=== PATIENT | female | born 2000 | race Caucasian/White ===

== ENCOUNTER → 2022-05-08 12:42 | Outpatient (CLI) | payer OTHER, SELFPAY ==
[2022-05-08 13:20] LABS: Appearance Urine UA CLEAR; Bilirubin Urine UA NEGATIVE (NEGATIVE); Color Urine UA YELLOW; Glucose Urine UA NEGATIVE (Negative); Ketones Urine UA NEGATIVE (NEGATIVE); Leukocyte Esterase Urine UA TRACE (NEGATIVE); Nitrite Urine UA NEGATIVE (Negative); Occult Blood Urine UA NEGATIVE (Negative); Protein Urine UA NEGATIVE (Negative); Specific Gravity Urine UA 1.015 (1.000-1.035); Urobilinogen Urine UA 0.2 E.U./dL (0.2)
[2022-05-08 13:21] LABS: pH Urine UA 6.5 (4.5-8.0)
[2022-05-08 13:21] LABS: Add Manual Diff / Slide Review NO; Basophils Absolute Auto 0 /uL (0-100); Basophils Percent Auto 0.5 % (0-2); Eosinophils Absolute Auto 0 /uL (0-450); Eosinophils Percent Auto 0.3 % (2-4); Hematocrit 38.6 % (36-46); Lymphocytes Absolute Auto 1500 /uL (1100-4500); Lymphocytes Percent Auto 15.1 % (25-40); Mean Corpuscular HGB Conc 33.6 % (30-36); Mean Corpuscular Volume 86.4 fL (80-100); Monocytes Absolute Auto 800 /uL (0-900); Monocytes Percent Auto 7.9 % (3-14); Neutrophils Absolute Auto 7500 /uL (1500-7000); Neutrophils Percent Auto 76.2 % (50-75); Platelet Count 227 X10^3/uL (150-400); Red Blood Cell Count 4.47 X10^6/uL (4.0-5.2); Red Cell Distribution Width 13.6 % (11.6-14.8); White Blood Cell Count 9.8 X10^3/uL (4.5-11.0)
[2022-05-08 13:27] LABS: Bacteria Urine None Seen; RBC Urine None Seen (0-5/HPF); WBC Urine 1-5/HPF (0-5/HPF)
[2022-05-09 08:32] LABS: RPR Screen Non Reactive (Non Reactive); Varicella IgG Antibody 2258 index (Immune >165)
[2022-05-09 10:10] LABS: Hepatitis B Surface Antigen NEGATIVE s/c (NEGATIVE)
[2022-05-09 10:28] LABS: HIV 1 & 2 Ab/Ag 4th Gen Combo NEGATIVE (NEGATIVE); Hep C Virus Ab w/Reflex Quant NEGATIVE s/c (NEGATIVE)
[2022-05-09 14:34] LABS: Rubella Antibody IgG 18.9 IU/mL (>15)
== END ==
PROVIDERS: PCP Physician Assistant; Referring Provider Family Medicine; Visit Provider Family Medicine
DX: Z34.81 Encounter for supervision of other normal pregnancy, first trimester (principal)
CPT/HCPCS: 36415; 80055; 81003; 81015; 86787; 86803; 86850; 86900; 86901; 87086; 87389

== ENCOUNTER → 2022-05-27 18:55 | Outpatient (CLI) | payer OTHER, SELFPAY ==
[2022-05-27 21:38] LABS: Influenza A - CEPHEID Flu A NEGATIVE (NEGATIVE); Influenza B - CEPHEID Flu B NEGATIVE (NEGATIVE); Respiratory Syncytial Virus POSITIVE (Negative)
[2022-05-27 21:56] LABS: COVID-19 CEPHEID 4-PLEX PCR Negative (Negative)
== END ==
PROVIDERS: PCP Physician Assistant; Visit Provider Physician Assistant Medical
DX: R05.9 Cough, unspecified (principal)
CPT/HCPCS: 0241U

== ENCOUNTER → 2022-07-24 16:15 | Outpatient (CLI) | payer OTHER, SELFPAY ==
--- NOTE | 2022-07-24 16:16 | DI.US.S_ITS ---
PROCEDURE: US OB >= 14 WEEKS FETUS INDICATIONS: Anatomy Scan OUTSIDE/PRIOR DATING DATA: Last menstrual period (LMP): 02/26/2022. LMP-based estimated date of delivery (YUNG): 12/03/2022. First dating scan (date and location): 07/24/2022. Estimated date of delivery (YUNG) from first dating scan: 12/06/2022. TECHNIQUE: Real-time scanning was performed of the fetus, with image documentation and biometric measurements. Endovaginal scanning: Not performed COMPARISON: None. FINDINGS: General: A single living intrauterine gestation is present. Presentation: Breech. Placenta: Placental position is posterior , without previa. Amniotic fluid index: 12.2 cm, normal range is 5-24 cm. Single deepest vertical pocket is 3.4 cm. heart rate: 160 beats per minute. Maternal cervical canal: 4.5 cm long. Normal lower limit is 2.5 cm. biometrics: Biparietal diameter: 4.8 centimeters, 20 weeks 3 days Head circumference: 18.5 centimeters, 20 weeks 6 days Abdominal circumference: 15.1 centimeters, 20 weeks 2 days Femur length: 3.6 centimeters, 21 weeks 2 days estimated gestational age: 21 weeks 1 day Composite gestational age from present scan: 20 weeks 5 days Estimated weight and percentile: 374 grams, 25th percentile Anatomic survey: Neuro: Ventricles are non-dilated at less than 10 mm. Cisterna magna is normal at 3-11 mm. Cerebellum is normal in size and morphology. Nuchal skin fold: Normal at less than 6 mm between 14-21 weeks gestational age. Face: Nose and lips, facial profile are normal. Spine: No evidence for spina bifida. Heart: 4-chambered heart is present. Normal left ventricular outflow tract. Right ventricular outflow tract not visualized. Diaphragm: Diaphragm is intact. Stomach: Left-sided stomach is present. Kidneys: No hydronephrosis. Normal is less than 5 mm in 2nd trimester, less than 7 mm in 3rd trimester. Cord: 3-vessel cord has orthotopic insertion. Bladder: Normal in size. Extremities: All 4 extremities identified. IMPRESSION: 1. Single living intrauterine . 2. The right ventricular outflow tract is not well visualized. Attention on follow-up is recommended. 3. The remainder of the 2nd trimester anatomy survey is within normal limits. We strive to produce accurate, complete, and clear reports of imaging services. To assist us in improving patient care, this report was composed using standard report templates and voice recognition software. Therefore, it may contain abnormal punctuation, insertions and/or omissions. Occasional wrong-word or sound-alike substitutions may occur. Though we review the report and make efforts to correct it, we do recommend that the report be read carefully in proper context to recognize any text inaccuracies. Dictated by: Keagan Alvarez M.D. on 07/25/2022 at 10:07 Approved by: Keagan Alvarez M.D. on 07/25/2022 at 10:19
== END ==
PROVIDERS: PCP Physician Assistant; Referring Provider Family Medicine; Visit Provider Family Medicine
DX: Z36.89 Encounter for other specified antenatal screening (principal); Z3A.20 20 weeks gestation of pregnancy
CPT/HCPCS: 76811

== ENCOUNTER → 2022-08-21 16:50 | Outpatient (CLI) | payer OTHER, SELFPAY ==
--- NOTE | 2022-08-21 16:51 | DI.US.S_ITS ---
PROCEDURE: US OB FOLLOW UP INDICATIONS: f/u cardiac OUTSIDE/PRIOR DATING DATA: Last menstrual period (LMP): 02/26/2022. LMP-based estimated date of delivery (YUNG): 12/03/2022. First dating scan (date and location): 07/24/2022. Estimated date of delivery (YUNG) from first dating scan: 12/06/2022. TECHNIQUE: Real-time scanning was performed of the fetus, with image documentation. Endovaginal scanning: performed COMPARISON: [facility], OB >= 14 WEEKS FETUS, 07/24/2022, 16:30. FINDINGS: A single living intrauterine gestation is present. Presentation: Vertex. Placenta: Placental position is posterior. Placental edge visualized 0.9 cm from the internal cervical os. Amniotic fluid index: 9.5 cm, normal range is 5-24 cm. Single deepest vertical pocket is 4.5 cm. heart rate: 155 beats per minute. Maternal cervical canal: 4.6 cm long. Normal lower limit is 2.5 cm. Estimated gestational age from initial scan: 25 weeks 1 day. right ventricular outflow tract visualized and within normal limits. IMPRESSION: 1. Single living intrauterine . 2. The right ventricular outflow tract is visualized and is within normal limits. This completes the 2nd trimester anatomy survey. No anomalies detected at this time. 3. Placental edge visualized 0.9 cm from the internal cervical os, likely related to a uterine contraction as no evidence of placenta previa was identified on the previous exam. Follow-up could be obtained as clinically indicated. Dictated by: Keagan Alvarez M.D. on 08/22/2022 at 11:25 Approved by: Keagan Alvarez M.D. on 08/22/2022 at 11:31
== END ==
PROVIDERS: PCP Physician Assistant; Referring Provider Family Medicine; Visit Provider Family Medicine
DX: Z36.2 Encounter for other antenatal screening follow-up (principal); Z3A.25 25 weeks gestation of pregnancy
CPT/HCPCS: 76816

== ENCOUNTER → 2022-09-09 11:49 | Outpatient (CLI) | payer OTHER, SELFPAY ==
[2022-09-09 12:46] LABS: Add Manual Diff / Slide Review NO; Basophils Absolute Auto 0 /uL (0-100); Basophils Percent Auto 0.1 % (0-2); Eosinophils Absolute Auto 100 /uL (0-450); Eosinophils Percent Auto 0.6 % (2-4); Hematocrit 35.1 % (36-46); Hemoglobin 11.8 g/dL (12.0-16.0); Lymphocytes Absolute Auto 1500 /uL (1100-4500); Mean Corpuscular HGB Conc 33.7 % (30-36); Mean Corpuscular Hemoglobin 30.1 PG (26-34); Mean Corpuscular Volume 89.2 fL (80-100); Monocytes Absolute Auto 800 /uL (0-900); Monocytes Percent Auto 7.6 % (3-14); Neutrophils Absolute Auto 8300 /uL (1500-7000); Neutrophils Percent Auto 77.7 % (50-75); Platelet Count 209 X10^3/uL (150-400); Red Blood Cell Count 3.94 X10^6/uL (4.0-5.2); Red Cell Distribution Width 13.4 % (11.6-14.8); White Blood Cell Count 10.7 X10^3/uL (4.5-11.0)
[2022-09-09 13:29] LABS: Alanine Aminotransferase 22 IU/L (<35); Albumin 3.2 g/dL (3.5-5.0); Albumin Globulin Ratio 1.1 (1.0-2.8); Alkaline Phosphatase 88 U/L (38-126); Aspartate Aminotransferase 22 IU/L (14-36); BUN Creatinine Ratio 14.3 (6-22); Bilirubin Total 0.2 mg/dL (0.2-1.3); Blood Urea Nitrogen 6 mg/dL (7-17); Calcium 8.7 mg/dL (8.4-10.2); Carbon Dioxide 27 mmol/L (22-32); Chloride 102 mmol/L (98-107); Estimated Glomerular Filt Rate > 60 mL/min (>60); Globulin 2.8 g/dL (1.7-4.1); Glucose 85 mg/dL (70-100); HEMOLYSIS < 15 (0-50); Potassium 4.1 mmol/L (3.4-5.1); Sodium 134 mmol/L (137-145)
[2022-09-09 13:32] LABS: Creatinine Urine Random 108.6 mg/dL; Protein (Total) Urine Random 20 mg/dL (0-12); Protein Creatinine Ratio Urine 0.18 GRAM/24H
== END ==
PROVIDERS: PCP Physician Assistant; Referring Provider Family Medicine; Visit Provider Family Medicine
DX: O09.299 Supervision of pregnancy with other poor reproductive or obstetric history, unspecified trimester (principal); R51.9 Headache, unspecified; Z3A.00 Weeks of gestation of pregnancy not specified
CPT/HCPCS: 36415; 80053; 82570; 84156; 85025

== ENCOUNTER → 2022-09-13 07:53 | Outpatient (CLI) | payer OTHER, SELFPAY ==
[2022-09-13 10:35] LABS: GTT (PREG) 1 Hour PP 50gm Dose 90 mg/dL (76-139)
== END ==
PROVIDERS: PCP Physician Assistant; Referring Provider Family Medicine; Visit Provider Family Medicine
DX: O09.299 Supervision of pregnancy with other poor reproductive or obstetric history, unspecified trimester (principal); Z3A.00 Weeks of gestation of pregnancy not specified
CPT/HCPCS: 36415; 82950

== ENCOUNTER → 2022-10-30 09:27 | Outpatient (CLI) | payer OTHER, SELFPAY ==
[2022-10-31 07:40] LABS: Strep Grp B PCR NEG for Grp B Strep
== END ==
PROVIDERS: PCP Physician Assistant; Visit Provider Family Medicine
DX: Z34.83 Encounter for supervision of other normal pregnancy, third trimester (principal); Z3A.35 35 weeks gestation of pregnancy
CPT/HCPCS: 87653

== ENCOUNTER 2022-11-26 22:46 | Inpatient (IN) | payer OTHER, SELFPAY ==
[2022-11-27] MEDS: DINOPROSTONE VAG (CERVIDIL) 10 MG VAG (00:12)
[2022-11-27 00:21] LABS: Add Manual Diff / Slide Review NO; Basophils Absolute Auto 100 /uL (0-100); Basophils Percent Auto 0.8 % (0-2); Eosinophils Absolute Auto 100 /uL (0-450); Hematocrit 34.3 % (36-46); Hemoglobin 11.6 g/dL (12.0-16.0); Lymphocytes Absolute Auto 2200 /uL (1100-4500); Lymphocytes Percent Auto 16.2 % (25-40); Mean Corpuscular HGB Conc 33.8 % (30-36); Mean Corpuscular Hemoglobin 29.2 PG (26-34); Mean Corpuscular Volume 86.5 fL (80-100); Monocytes Absolute Auto 1300 /uL (0-900); Monocytes Percent Auto 9.8 % (3-14); Neutrophils Absolute Auto 9700 /uL (1500-7000); Neutrophils Percent Auto 72.2 % (50-75); Platelet Count 153 X10^3/uL (150-400); Red Blood Cell Count 3.97 X10^6/uL (4.0-5.2); Red Cell Distribution Width 13.1 % (11.6-14.8); White Blood Cell Count 13.4 X10^3/uL (4.5-11.0)
[2022-11-27] MEDS: ZOLPIDEM 5 MG TABLET PO (00:44)
[2022-11-27 01:08] VITALS: BP 128/73
--- NOTE | 2022-11-27 08:35 | PM.OBHP.IH.1 ---
OB HPI Date/Time Date of admission: 11/27/22 Date Patient Seen: 11/27/22 History of Present Condition Chief complaint: observation of labor YUNG Calculator Estimated Delivery Date Method Current WG Current Estimate 12/03/22 Manual 39w 1d Final YUNG - BLADIMIR Other Estimates 12/03/22 LMP (Certain) 39w 1d 12/01/22 Ultrasound #1 39w 3d Estimated Gestational Age (weeks): 39w1d : 2 Para: 1 Narrative: 22yo at 39w1d here for elective IOL. She is feeling her baby move regularly. No LOF, vaginal bleeding, contractions. Her has been uncomplicated. She was on a baby aspirin from 12 weeks on due to a hx of pre-eclampsia with her last . care: good care, initiated at week # (10) and pounds weight gain (49) Dating criteria OB: LMP confirmed by 1st trimester US Ultrasounds: normal 1st trimester US and normal mid trimester US Obstetrical complications: none Medical complications OB: none Preadmission Labs Last OB Lab Results: Blood Type A Positive 11/26/22 23:55 Antibody Screen Negative 11/26/22 23:55 Hematocrit 34.3 % (36-46) L 11/26/22 23:55 Hemoglobin 11.6 g/dL (12.0-16.0) L 11/26/22 23:55 Hepatitis B Surface Antigen Negative s/c (NEGATIVE) 05/08/22 12:48 Hepatitis C Antibody Negative s/c (NEGATIVE) 05/08/22 12:48 Rubella Antibody 18.9 IU/mL (>15) 05/08/22 12:48 Varicella-Zoster IgG Antibody 2258 index (Immune >165) 05/08/22 12:48 Glucose 1 Hour 90 mg/dL (76-139) 09/13/22 09:22 Group B Streptococcus (PCR) Neg for grp b strep 10/30/22 09:27 -: Urine: negative External Labs -: Urine: negative Prior (ies) Past Pregnancies Del. 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 Evaluation Evaluation Baseline heart rate: 130 Variability: Moderate (11-25) monitor accelerations: Present Monitor Decelerations: Absent Contraction Frequency (minutes): 6 Uterine Contraction Intensity: Mild Status: Category l Dilation (cm): 2 Effacement (%): 70 Dilation: 1-2 cm Effacement: 60-70% station: -1 Position of cervix: anterior Consistency: soft Doll score: 9 ON LICENSE OF [facility] Medical History (Updated 11/06/22 @ 12:55 by Chloé Obando MD) Melanoma Preeclampsia Surgical History Anesthesia [place] teeth extracted (~06/14/16) Family History Mother Melanoma Stroke Smoking Hypertension Preeclampsia Grandfather Myocardial infarction Grandmother Cancer Grandfather Cancer Grandmother Diabetes mellitus Family/Other Diabetes mellitus Social History marital status: number of children: 1 household members: spouse and children lives independently: Yes housing: house pets and animals: Yes (2 dogs, aware of toxo precautions) education level: high school occupational status: employed current occupational exposures/hazards: Yes (frequent infection exposure) special gabrielle needs: No travel history: recent seatbelt use: always water heater temp set < 120 deg: Yes working smoke detector in home: Yes fire extinguisher in home: Yes carbon monox detector in home: Yes firearms in home: Yes firearms unloaded and locked: Yes do you feel safe at home: Yes Smoking Status: Former smoker Tobacco: How many years used: 2 second hand exposure: Yes ( vapes) alcohol intake: former substance use type: does not use during the past year weight has: remained stable well-balanced diet: daily or most days daily servings fruits/ve-4 caffeine: Yes Type(s) of exercise: running Meds Home Medications and Allergies Home Medications Medication Instructions Recorded Confirmed Type prenat.vits,tejal,ltr-xsex-fteoc 1 tab PO DAILY 04/26/22 11/22/22 History Allergies Allergy/AdvReac Type Severity Reaction Status Date / Time No Known Drug Allergies Allergy Unverified 11/22/22 14:26 OB Exam Narrative Exam Narrative: Gen: NAD, sitting comfortably in bed, appears well CV: RRR, no murmurs Resp: clear to auscultation bilaterally Abd: soft, nontender, gravid Ext: no edema Objective Labs 11/26/22 23:55 Labs: Laboratory Results - last 24 hr 11/26/22 11/26/22 23:55 23:55 WBC 13.4 H RBC 3.97 L Hgb 11.6 L Hct 34.3 L MCV 86.5 MCH 29.2 MCHC 33.8 RDW 13.1 Plt Count 153 Neut % (Auto) 72.2 Lymph % (Auto) 16.2 L [place] % (Auto) 9.8 Eos % (Auto) 1.0 L Baso % (Auto) 0.8 Neut # (Auto) 9700 H Lymph # (Auto) 2200 [place] # (Auto) 1300 H Eos # (Auto) 100 Baso # (Auto) 100 Blood Type A Positive Antibody Screen Negative Assessment and Plan Assessment and Plan Assessment and Plan narrative: 22yo at 39w1d here for elective IOL. GBS negative, Rh positive. No complications with . Received cervidil overnight, Doll score now 9. - Expectant management, anticipate - FHT reassuring - GBS negative, no prophylaxis indicated - Epidural for pain control when desired - Start pitocin after breakfast, titrate as tolerated
[2022-11-27] MEDS: LACTATED RINGERS 1,000 ML 100 ML IV (08:59)
[2022-11-27] MEDS: OXYTOCIN PREMIX 30 UNIT/500 ML PLAST..BAG IV (09:00)
[2022-11-27] MEDS: FENT 2MCG/ML BUPIV 0.125% EPI 200 MCG/100 ML PLAST..BAG 8 MCG EPIDURAL (12:07)
--- NOTE | 2022-11-27 16:13 | PM.OBPRVD ---
Labor & Delivery Delivery date: 11/27/22 Intrapartal Events: None Cervical ripening method: per Cervidil protocol Induction method: per pitocin protocol Delivery augmentation: rupture of membranes Delivery monitor: external FHT and external uterine Route of delivery: Episiotomy description: None L&D Laceration Description: Perineal - 2nd Degree Quantitative Blood Loss: 200 Anesthesia Type: Epidural Complications: None Narrative: PROCEDURE: at 39w1d presented for elective IOL and was admitted to Labor and Delivery. She received cervidil, and then pitocin for induction. The patient progressed through the 1st stage over 2.5 hours. AROM occured at 12:06 with clear fluid. Pain was controlled with an epidural. The patient progressed through the 2nd stage over 13 minutes and delivered a viable male with APGARs 9/9 at 15:44 via without complications. The cord was cut and clamped after it stopped pulsating. The placenta delivered with gentle cord traction, and appeared complete. The perineum and vagina were inspected with very small 2nd degree perineal laceration repaired with 2-O Vicryl. Needle and sponge counts were correct.? The vagina was inspected and no items were left in situ. Una was doing well with Tahir, her and her , RAULITO, at bedside. PREPROCEDURE DIAGNOSIS: Intrauterine at 39w1d GBS negative RH positive POSTPROCEDURE DIAGNOSIS: Intrauterine at 39w1d, delivered Same as preprocedure Baby 1: Infant gender: Male Presentation: vertex Position: Right Occiput Anterior Placenta delivery description: Spontaneous Cord Vessel Description: 3 Vessels score (1 min): 9 score (5 min): 9 weight: 7 lb 15.41 oz Plan for aftercare: Routine care
[2022-11-28] MEDS: IBUPROFEN 600 MG TABLET PO ×3 (00:05→18:03)
[2022-11-28] MEDS: ACETAMINOPHEN 325 MG TABLET 650 MG PO ×3 (01:54→18:03)
--- NOTE | 2022-11-28 09:55 | P.DS_ITS ---
Discharge Providers Provider Date of admission: 11/26/22 22:46 Discharge Date: 11/28/22 Primary care physician: Ludivina Machado PA-C Consults: 11/28/22 16:30 Consult to Director [employer] Routine Comment: Discharge provider: Chloé Obando MD Summary Hospital Course Date Patient Seen: 11/28/22 Diagnoses: Intrauterine at 39w1d GBS negative RH positive Hospital Course: The pt presented for elective IOL. She received cervidil and then pitocin for induction. SROM occurred with clear fluid present. She had an epidural for pain control. She progressed to complete and had an of a viable baby boy without complications. A small 2nd degree perineal laceration was repaired. , there were no complications. At the time of discharge she was vo iding, ambulating, and passing flatus without difficulty. Her lochia was decreasing appropriately. Her pain was well controlled. She will f/u in 6 weeks for check. She is with good latch. She would like condoms for contraception. Peripartum Data Infant Delivery Method: Natural Vaginal Laceration Description: Perineal - 2nd Degree Episiotomy description: None Procedures: Spontaneous vaginal delivery complications: none [place] 1: Gender: Male Disposition of : home Discharge Diagnosis (1) Spontaneous vaginal delivery: Status: Acute Status at Discharge Cognitive/behavioral status at discharge: oriented Functional status at discharge: independent ambulation Overall status at discharge: patient is progressing back to baseline Time Spent with Patient Time attestation: Total time spent providing and/or coordinating discharge services: Objective Labs 11/26/22 23:55 Exam Narrative Exam Narrative: Gen: NAD, sitting comfortably in bed, appears well CV: RRR, no murmurs Resp: clear to auscultation bilaterally Abd: soft, appropriately tender, fundus firm and below the umbilicus, nondistended Ext: no edema Discharge Plan Discharge Plan Patient Disposition: Home Discharge orders & Medications Prescriptions: New acetaminophen 325 mg Tablet 650 mg PO Q6HR PRN (Reason: Pain, Mild (1-3)) Qty: 30 0RF docusate sodium 100 mg Capsule 100 mg PO DAILY Qty: 30 0RF ibuprofen 600 mg Tablet 600 mg PO Q6HR PRN (Reason: Pain, Mild (1-3)) Qty: 30 0RF Continued prenat.vits,tejal,jva-gavf-giqwb Tablet 1 tab PO DAILY Follow up/Referrals: Ludivina Machado PA-C [Primary Care Provider] - Chloé Obando MD [Physician] - 6 Weeks Diet/Activity/Treatments Diet: Diet as Tolerated and Regular Skin/Wound/Dressing Care Report to your healthcare provider any signs of infection, such as:: chills, fever, increased pain and unusual drainage Visit Report/Discharge Packet Instructions: DI for Labor and Delivery, Vaginal Stand Alone Forms: Patient Portal/API, Stroke Signs & Symptoms Discharge Data Primary Care Provider: Ludivina Machado
[2022-11-28] MEDS: PRENATAL VIT,CALC/IRON/FOLIC 1 TABLET 1 TAB PO (10:36)
[2022-11-28] MEDS: DOCUSATE 100 MG CAPSULE PO (10:36)
[2022-11-28] MEDS: LANOLIN OINT 7 GM 1 APPLIC TOP (18:03)
[2022-11-28] MEDS: DERMOPLAST SPRAY 20% 60 ML 1 SPRAY TOP (18:04)
== END 2022-11-28 18:25 | disposition home or self-care (01) | DRG 807 ==
PROVIDERS: Admitting Provider Family Medicine; PCP Physician Assistant; Referring Provider Family Medicine; Visit Provider Family Medicine
DX: O70.1 Second degree perineal laceration during delivery (principal); Z37.0 Single live birth; Z3A.39 39 weeks gestation of pregnancy; Z67.10 Type A blood, Rh positive
CPT/HCPCS: 36415; 59025; 59050; 59200; 59400; 85025; 86850; 86900; 86901; G0379; J2590

== ENCOUNTER → 2024-06-18 12:14 | Outpatient (CLI) | payer OTHER, SELFPAY ==
[2024-06-18 14:17] LABS: Influenza A - CEPHEID Flu A NEGATIVE (NEGATIVE); Influenza B - CEPHEID Flu B NEGATIVE (NEGATIVE); Respiratory Syncytial Virus Negative (Negative)
[2024-06-18 14:24] LABS: COVID-19 CEPHEID 4-PLEX PCR Negative (Negative)
== END ==
PROVIDERS: PCP Physician Assistant; Visit Provider Student in an Organized Health Care Education/Training Program
DX: J02.9 Acute pharyngitis, unspecified (principal); R05.1 Acute cough
CPT/HCPCS: 0241U; 87070

== ENCOUNTER → 2024-12-06 16:58 | Outpatient (CLI) | payer OTHER, SELFPAY | PROVIDERS: PCP Physician Assistant; Visit Provider Chiropractor | DX: R35.0 Frequency of micturition (principal) | CPT/HCPCS: 87086 ==

== ENCOUNTER → 2025-05-03 18:26 | Outpatient (CLI) | payer OTHER, SELFPAY | PROVIDERS: PCP Physician Assistant; Visit Provider Nurse Practitioner Family | DX: R39.15 Urgency of urination (principal) | CPT/HCPCS: 87077; 87086; 87210 ==

== ENCOUNTER 2025-05-16 18:49 | Emergency (ER) | payer OTHER, SELFPAY ==
[2025-05-16 19:25] VITALS: BP 156/88; PULSE 92; RESP 18; TEMP 36.6; O2SAT 99; BMI 32.8
--- NOTE | 2025-05-16 19:36 | ED_ITS ---
HPI - Female Genitourinary General Chief complaint: Vaginal Bleeding Stated complaint: possible + bleeding Time Seen by Provider: 05/16/25 19:36 Source: patient Mode of arrival: Ambulatory History of Present Illness HPI Narrative: 24-year-old female patient, at 6-7 weeks EGA by LMP who complains of mild abdominal pelvic discomfort and spotting to mild bleeding on the tissue earlier today. No cramps. Related Data Home Medications ?Medication ?Instructions ?Recorded ?Confirmed levonorgestrel 0.15 mg-ethinyl 1 tab PO DAILY 06/18/24 05/03/25 estradiol 30 mcg tablets,3 mos pack(91) (Jolessa) Previous Rx's ?Medication ?Instructions ?Recorded phenazopyridine 200 mg tablet 200 mg PO TID 6 doses #6 tabs 05/03/25 (Pyridium) Allergies Allergy/AdvReac Type Severity Reaction Status Date / Time No Known Drug Allergies Allergy Verified 05/16/25 19:33 Patient History Medical History Melanoma Preeclampsia Surgical History Anesthesia [place] teeth extracted (~06/14/16) Family History Mother Melanoma Stroke Smoking Hypertension Preeclampsia Grandfather Myocardial infarction Grandmother Cancer Grandfather Cancer Grandmother Diabetes mellitus Family/Other Diabetes mellitus tobacco type: vaping Exam Narrative Exam Narrative: General: Alert and conversant. Mild distress. Appears well nourished and well hydrated Lungs: Clear to auscultation with good air movement. No wheezing, rales or rhonchi. No respiratory distress Cardiac: Regular rate and rhythm with no appreciable murmur or gallop Abdomen: Soft, nontender with no distention or masses. Normal bowel sounds. No rebound or guarding Pelvic: No tissue in the vault OS. Os is closed. No cervical motion tenderness. There is small amount of bleeding from the os. Neuro: Alert and oriented. Cranial nerves, motor, sensory and cerebellar all grossly intact. No focal deficit Skin: Warm and normal color. No rashes Psychological: Normal affect and interaction. No evidence of delusion or psychosis. Normal mood. Initial Vital Signs Initial Vital Signs: Vital Signs Temperature 97.9 F 05/16/25 19:25 Pulse Rate 92 H 05/16/25 19:25 Respiratory Rate 18 05/16/25 19:25 Blood Pressure 156/88 H 05/16/25 19:25 Pulse Oximetry 99 05/16/25 19:25 Oxygen Delivery Method Room Air 05/16/25 19:25 Course Orders Ordered: ED Orders 05/16/25 19:38 Urinalysis and Microscopic Stat 05/16/25 19:39 CBC Auto Diff [Complete Blood Count AUTO DIFF] Stat HCG Quantitative /Beta subunit Stat Vital Signs Vital signs: Vital Signs - 8 hr 05/16/25 19:25 Temperature 97.9 F Pulse Rate 92 H Respiratory Rate 18 Blood Pressure 156/88 H Pulse Oximetry 99 Oxygen Delivery Method Room Air MDM - Female Genitourinary Lab Data Attestation: I reviewed the patient's lab results. Lab results narrative: Patient has previous lab with Rh positive 05/16/25 19:39 Labs: Lab Results 05/16/25 Range/Units 19:39 WBC 9.8 (4.5-11.0) X10^3/uL RBC 4.65 (4.0-5.2) X10^6/uL Hgb 13.5 (12.0-16.0) g/dL Hct 39.9 (36-46) % MCV 85.8 (80-100) fL MCH 29.1 (26-34) PG MCHC 33.9 (30-36) % RDW 13.2 (11.6-14.8) % Plt Count 242 (150-400) X10^3/uL Neut % (Auto) 66.0 (50-75) % Lymph % (Auto) 22.1 L (25-40) % [place] % (Auto) 7.6 (3-14) % Eos % (Auto) 3.5 (2-4) % Baso % (Auto) 0.8 (0-2) % Neut # (Auto) 6500 (3783-4062) /uL Lymph # (Auto) 2200 (5274-5540) /uL [place] # (Auto) 700 (0-900) /uL Eos # (Auto) 300 (0-450) /uL Baso # (Auto) 100 (0-100) /uL HCG, Quant < 2.39 mIU/mL Blood Type Cancelled MDM Narrative Medical decision making narrative: 24-year-old at 6-7 weeks EGA by LMP of mid March who now has almost negative quantitative hCG with normal CBC and history of Rh positive. On exam she has no tissue. This is either a non or possible incomplete or complete miscarriage. Currently stable and needs no further workup in the ER. Patient given instructions on management. Hydrate, rest and take [id number] pain medicine as needed. Follow up with her provider in 2-3 days for reassessment and repeat quantitative hCG. Return to the ER if worse. Discharge Plan Departure Patient Disposition: Home Clinical Impression: Incomplete miscarriage Instructions: DI for Miscarriage Activity Restrictions/Additional Instructions: Plan: Hydration, rest and monitor symptoms. Follow up with your primary care provider within 2-3 days for repeat evaluation and repeat quantitative hCG. Return to the ER if worse Prescriptions: No Action levonorgestrel-ethinyl estrad [Jolessa] 0.15 mg-30 mcg (91) tablets,dose pack,3 month 1 tab PO DAILY phenazopyridine [Pyridium] 200 mg tablet 200 mg PO TID 0 Days Qty: 6 0RF Referrals: ProviderAdriano [Primary Care Provider, Family Practice] Stand Alone Forms: Patient Portal/API
[2025-05-16 20:02] LABS: Add Manual Diff / Slide Review NO; Hematocrit 39.9 % (36-46); Hemoglobin 13.5 g/dL (12.0-16.0); Lymphocytes Absolute Auto 2200 /uL (1100-4500); Mean Corpuscular HGB Conc 33.9 % (30-36); Mean Corpuscular Hemoglobin 29.1 PG (26-34); Mean Corpuscular Volume 85.8 fL (80-100); Platelet Count 242 X10^3/uL (150-400)
[2025-05-16 20:30] LABS: HCG Quantitative /Beta subunit < 2.39 mIU/mL
[2025-05-16 21:08] VITALS: BP 152/90; PULSE 74; RESP 18; O2SAT 100
== END 2025-05-16 21:11 | disposition home or self-care (01) ==
PROVIDERS: Emergency Provider Emergency Medicine
DX: O03.4 Incomplete spontaneous abortion without complication (principal)
CPT/HCPCS: 36415; 84702; 85025; 99283; 99284